=== PATIENT | male | born 1955 | race Two or more races ===

== ENCOUNTER 2017-04-09 21:23 | Emergency (ER) | payer MEDICARE, MEDICAID ==
[~2017-04-09] VITALS: Ht 185.4 cm; Wt 84.0 kg
[2017-04-09] MEDS ORDERED: IBUPROFEN 800MG TABLET PO ONE (22:15)
[2017-04-09 22:45] VITALS: BP 147/87
== END 2017-04-09 22:52 | disposition home or self-care (01) ==
LOC: ER 21:58
DX: M25.531 Pain in right wrist (principal); F10.10 Alcohol abuse, uncomplicated; F17.200 Nicotine dependence, unspecified, uncomplicated; I10 Essential (primary) hypertension; Y08.89XA Assault by other specified means, initial encounter; Y93.89 Activity, other specified; Y92.89 Other specified places as the place of occurrence of the external cause; Y99.8 Other external cause status
CPT/HCPCS: 99283